=== PATIENT | male | born 1940 | race Caucasian/White ===

== ENCOUNTER → 2018-11-06 | Outpatient (CLI) | payer MEDICARE | END | disposition home or self-care (01) | LOC: CVU 07:10 | PROVIDERS: ATTEND Internal Medicine | DX: I70.293 Other atherosclerosis of native arteries of extremities, bilateral legs (principal); I10 Essential (primary) hypertension | CPT/HCPCS: 93922; 93925 ==

== ENCOUNTER 2019-01-06 08:08 | Inpatient (IN) | payer MEDICARE ==
[~2019-01-06] VITALS: Ht 177.8 cm; Wt 67.5 kg
[2019-01-06 09:14] LABS: BASOPHILS # (AUTO) 0.01 x10^3/uL (0-0.1); BASOPHILS % (AUTO) 0 % (0-1); EOSINOPHILS # (AUTO) 0.01 x10^3/uL (0-0.4); EOSINOPHILS % (AUTO) 0 % (1-7); LYMPHOCYTES # (AUTO) 0.44 x10^3/uL (1-3.4); LYMPHOCYTES % (AUTO) 5 % (22-44); MD NO; MEAN CORPUSCULAR HEMOGLOBIN 30.3 pg (27.5-34.5); MEAN CORPUSCULAR HGB CONC 33.3 g/dL (33.2-36.2); MEAN CORPUSCULAR VOLUME 90.9 fL (81-97); MEAN PLATELET VOLUME 8.8 fL (7.4-10.4); MONOCYTES # (AUTO) 0.51 x10^3/uL (0.2-0.8); MONOCYTES % (AUTO) 6 % (2-9); NEUTROPHILS # (AUTO) 7.42 x10^3/uL (1.8-6.8); NEUTROPHILS % (AUTO) 89 % (42-75); PLATELET COUNT 193 x10^3/uL (130-400); RED BLOOD COUNT 5.62 x10^6/uL (4.38-5.82); RED CELL DISTRIBUTION WIDTH 13.6 % (9.4-14.8)
[2019-01-06 09:29] LABS: ALANINE AMINOTRANSFERASE 20 U/L (12-78); ANION GAP 6 mmol/L (5-15); CALCIUM 8.9 mg/dL (8.5-10.1); CHLORIDE 99 mmol/L (98-107); CREATININE 0.88 mg/dL (0.7-1.3)
[2019-01-06] MEDS ORDERED: MORPHINE SULFATE 4 MG/ML, 1ML IVPush ONE ×2 (09:30→13:30)
[2019-01-06] MEDS ORDERED: ONDANSETRON 2MG/ML, 2ML IVPush ONE (09:30)
[2019-01-06] MEDS ORDERED: ONDANSETRON 2MG/ML, 2ML ONE (09:33)
[2019-01-06] MEDS ORDERED: MORPHINE SULFATE 4 MG/ML, 1ML ONE ×2 (09:33→13:28)
[2019-01-06 09:34] LABS: ALKALINE PHOSPHATASE 75 U/L (45-117); BILIRUBIN,TOTAL 0.9 mg/dL (0.2-1.0); TOTAL PROTEIN 7.2 g/dL (6.4-8.2); TROPONIN I < 0.015 ng/mL (0.000-0.045)
--- NOTE | 2019-01-06 09:38 | NUR ---
Plan of care updated with patient and family member, questions answered. Patient transported for ct scan.
[2019-01-06] MEDS ORDERED: OMNIPAQUE 350 MG/ML, 100ML BOTTLE ONE (10:04)
--- NOTE | 2019-01-06 11:26 | NUR ---
Plan of care updated with patient and his , questions answered. Call ly within reach.
[2019-01-06] MEDS ORDERED: METO25TA91 PO (12:18)
[2019-01-06] MEDS ORDERED: LOSA100T14 PO (12:19)
[2019-01-06] MEDS ORDERED: BUPR150T6 PO (12:19)
[2019-01-06] MEDS ORDERED: SAW500CA PO (12:21)
--- NOTE | 2019-01-06 12:22 | NUR ---
FAMILY MEMBER CALLED. UPDATED PATIENT'S HOME MEDICATION LIST.
--- NOTE | 2019-01-06 15:41 | NUR ---
Patient resting in gurney waiting to be evaluated by admitting provider, call ly within reach. Patient aware of plan of care.
[2019-01-06 17:03] VITALS: BP 196/92
[2019-01-06 17:44] VITALS: BP 163/90
[2019-01-06 18:34] VITALS: BP 168/82
[2019-01-06] MEDS ORDERED: ONDANSETRON 2MG/ML, 2ML IVPush PRN (19:00)
[2019-01-06] MEDS ORDERED: LIDODERM 5% PATCH TD PRN (19:00)
[2019-01-06] MEDS: SODIUM CHLORIDE 0.9% 1,000 ML IV SCH (21:32)
[2019-01-06] MEDS: morphine SULFATE 10 MG/ML, 1ML IVPush PRN (21:41)
[2019-01-07 01:12] VITALS: BP 172/84
[2019-01-07] MEDS: morphine SULFATE 10 MG/ML, 1ML IVPush PRN ×2 (04:58→10:15)
[2019-01-07] MEDS: SODIUM CHLORIDE 0.9% 1,000 ML IV SCH ×2 (04:59→14:22)
[2019-01-07 05:27] LABS: BASOPHILS % (AUTO) 0 % (0-1); EOSINOPHILS % (AUTO) 0 % (1-7); LYMPHOCYTES # (AUTO) 0.48 x10^3/uL (1-3.4); LYMPHOCYTES % (AUTO) 5 % (22-44); MD NO; MEAN CORPUSCULAR HEMOGLOBIN 31.2 pg (27.5-34.5); MEAN CORPUSCULAR HGB CONC 34.2 g/dL (33.2-36.2); MEAN CORPUSCULAR VOLUME 91.3 fL (81-97); MEAN PLATELET VOLUME 9.4 fL (7.4-10.4); MONOCYTES # (AUTO) 0.55 x10^3/uL (0.2-0.8); MONOCYTES % (AUTO) 6 % (2-9); NEUTROPHILS # (AUTO) 7.77 x10^3/uL (1.8-6.8); NEUTROPHILS % (AUTO) 88 % (42-75); PLATELET COUNT 195 x10^3/uL (130-400); RED BLOOD COUNT 5.45 x10^6/uL (4.38-5.82); RED CELL DISTRIBUTION WIDTH 13.9 % (9.4-14.8)
[2019-01-07 05:47] LABS: CHLORIDE 101 mmol/L (98-107)
[2019-01-07 06:00] LABS: ALANINE AMINOTRANSFERASE 19 U/L (12-78); ALBUMIN 3.7 g/dL (3.4-5.0); ALKALINE PHOSPHATASE 78 U/L (45-117); ANION GAP 8 mmol/L (5-15); BILIRUBIN,TOTAL 1.3 mg/dL (0.2-1.0); CALCIUM 8.7 mg/dL (8.5-10.1)
[2019-01-07 07:54] VITALS: BP 165/84
[2019-01-07] MEDS: ENOXAPARIN 40 MG/0.4 ML SQ SCH (10:14)
[2019-01-07] MEDS: ISOSORBIDE DINITRATE 10 MG TABLET PO SCH ×3 (10:14→20:03)
[2019-01-07 14:08] VITALS: BP 141/83
[2019-01-07] MEDS: BISACODYL 10 MG SUPP PR SCH (14:19)
[2019-01-07 16:56] VITALS: BP 169/72
[2019-01-07 19:38] VITALS: BP 118/64
[2019-01-08 00:12] VITALS: BP 126/62
[2019-01-08] MEDS: SODIUM CHLORIDE 0.9% 1,000 ML IV SCH ×2 (05:36→20:33)
[2019-01-08 06:40] VITALS: BP 134/62
[2019-01-08] MEDS ORDERED: MAGNESIUM CITRATE 300ML ORAL SOL PO ONE (08:00)
[2019-01-08] MEDS ORDERED: MORPHINE SULFATE 4 MG/ML, 1ML IVPush PRN (08:00)
[2019-01-08] MEDS: ENOXAPARIN 40 MG/0.4 ML SQ SCH (09:10)
[2019-01-08] MEDS: BISACODYL 10 MG SUPP PR SCH (09:11)
[2019-01-08] MEDS: ISOSORBIDE DINITRATE 10 MG TABLET PO SCH ×3 (09:11→20:21)
[2019-01-08] MEDS ORDERED: SENN-177 PO (09:56)
[2019-01-08] MEDS ORDERED: BISA10SU54 PR (09:56)
[2019-01-08] MEDS ORDERED: ISOS10TA2 PO (09:56)
[2019-01-08] MEDS ORDERED: HYDR-3341 PO (09:56)
[2019-01-08 13:08] VITALS: BP 137/65
[2019-01-08] MEDS ORDERED: METHYLNALTREXONE 12 MG/0.6 ML SYR SQ ONE (14:00)
[2019-01-08 19:15] VITALS: BP 135/65
[2019-01-09 00:10] VITALS: BP 134/67
[2019-01-09 07:14] VITALS: BP 169/85
[2019-01-09] MEDS: ENOXAPARIN 40 MG/0.4 ML SQ SCH (08:00)
[2019-01-09] MEDS: BISACODYL 10 MG SUPP PR SCH (09:00)
[2019-01-09] MEDS: ISOSORBIDE DINITRATE 10 MG TABLET PO SCH (09:14)
[2019-01-09 09:45] VITALS: BP 144/81
== END 2019-01-09 10:15 | disposition home or self-care (01) | DRG 392 ==
LOC: ED 11:45 → EDIP 12:44 → 4NOR 17:03 → DCLOUNGE 01-09 10:02
PROVIDERS: ADMIT Hospitalist; ATTEND Hospitalist
DX: K59.00 Constipation, unspecified (principal); I16.0 Hypertensive urgency; G47.00 Insomnia, unspecified; I10 Essential (primary) hypertension; Z80.1 Family history of malignant neoplasm of trachea, bronchus and lung; Z87.891 Personal history of nicotine dependence; Z90.49 Acquired absence of other specified parts of digestive tract
CPT/HCPCS: 36415; 71046; 71275; 74018; 74175; 80053; 83690; 84484; 85025; 93005; 96374; 96375; 96376; 99285; G0378; J1650; J2405; Q9967; J2270; J7030